=== PATIENT | female | born 1970 | race Caucasian/White ===

== ENCOUNTER 2017-04-04 12:57 | Emergency (ER) | payer SELFPAY ==
--- NOTE | 2017-04-04 14:07 | PHYS DOC ---
Past History Past Medical History: CHF, Kidney Stones, UTI Past Surgical History: Cholecystectomy Alcohol Use: Occasionally Drug Use: Marijuana Adult General Chief Complaint Chief Complaint: PAIN ON URINATION HPI HPI Patient is a 46 year old female who presents with complaint of pain with urination. The patient states that she has history of kidney stones. The patient states that she is from [place], [place] and in 2013 the patient had a "urethral stent" placed at that time due to her kidney stones. The patient states that she was supposed to have this taken out 2 weeks after it was placed , however she states that "they wanted the charge me $500 to be seen again and I did not have the money." Patient states that since then she has had the stent in place for the past 3 years. Patient states that she is currently visiting on vacation. Patient noticed increasing cloudiness to her urine and pain which is why she came in to be evaluated. Patient also notes that she has had vaginal discharge though she states she does not believe she has a sexually transmitted infection. Patient states that the discharge is whitish and thick. Patient states that she is having pain intermittently in both flanks but states that it is not severe at this time. The patient's main concern is the changes to her urine and thinks that she may have urinary tract infection. Review of Systems Review of Systems Constitutional: Denies fever or chills [] Eyes: Denies change in visual acuity, redness, or eye pain [] HENT: Denies nasal congestion or sore throat [] Respiratory: Denies cough or shortness of breath [] Cardiovascular: Denies chest pain or edema[] GI: Abdominal pain, denies nausea, vomiting, bloody stools or diarrhea [] : Dysuria, vaginal discharge[] Musculoskeletal: Denies back pain or joint pain [] Integument: Denies rash or skin lesions [] Neurologic: Denies headache, focal weakness or sensory changes [] Allergies Allergies Allergies Coded Allergies Type Severity Reaction Last Updated Verified Penicillins Allergy Intermediate 04/04/17 Yes Physical Exam Physical Exam Constitutional: Well developed, well nourished, no acute distress, non-toxic appearance. [] HENT: Normocephalic, atraumatic, bilateral external ears normal, oropharynx moist, no oral exudates, nose normal. [] Eyes: PERRLA, EOMI, conjunctiva normal, no discharge. [] Neck: Normal range of motion, no tenderness, supple, no stridor. [] Cardiovascular:Heart rate regular rhythm, no murmur [] Lungs & Thorax: Bilateral breath sounds clear to auscultation [] Abdomen: Bowel sounds normal, soft, no tenderness, no masses, no pulsatile masses. Pelvic: Normal external exam, mucosal erythema with clearish drainage, no cervical motion tenderness, no midline or bilateral adnexal tenderness on bimanual exam[] Skin: Warm, dry, no erythema, no rash. [] Back: No tenderness, no CVA tenderness. [] Extremities: No tenderness, no cyanosis, no clubbing, ROM intact, no edema. [] Neurologic: Alert and oriented X 3, normal motor function, normal sensory function, no focal deficits noted. [] Current Patient Data Vital Signs Vital Signs Date Time Temp Pulse Resp B/P (MAP) Pulse Ox O2 Delivery O2 Flow Rate FiO2 04/04/17 13:25 98.7 80 22 97 Room Air Lab Results Laboratory Tests Test 04/04/17 14:20 Urine Collection Type Void Urine Color Straw Urine Clarity Cloudy Urine pH 5.0 Urine Specific [place] <=1.005 Urine Protein Neg Urine Glucose (UA) Neg mg/dL Urine Ketones (Stick) Neg mg/dL Urine Blood Mod Urine Nitrite Neg Urine Bilirubin Neg Urine Urobilinogen Dipstick 0.2 mg/dL Urine Leukocyte Esterase Large Urine RBC Occ /HPF Urine WBC >40 /HPF Urine Squamous Epithelial Cells Few /LPF Urine Bacteria Few /HPF EKG EKG Not performed[] Radiology/Procedures Radiology/Procedures Not performed[] Course & Med Decision Making Course & Med Decision Making Pertinent Labs and Imaging studies reviewed. (See chart for details) The patient's UA shows evidence of urinary tract infection and wet prep shows evidence of bacterial vaginosis. Patient will be started on Macrobid for UTI and MetroGel for BV. Advised patient follow-up in one week with primary doctor for reevaluation and also recommended follow-up with urology for her further complaints of retained stent. The patient's vital signs are stable and patient' s exam is otherwise benign. The patient does not require further testing in the emergency department at this time. Advised return emergency department for any worsening symptoms. Patient voiced understanding and in agreement with treatment plan. Dragon Disclaimer Dragon Disclaimer This chart was dictated in whole or in part using Voice Recognition software in a busy, high-work load, and often noisy Emergency Department environment. It may contain unintended and wholly unrecognized errors or omissions. Departure Departure: Impression: Primary Impression: Bacterial vaginosis Additional Impression: Urinary tract infection Disposition: 01 HOME, SELF-CARE Condition: STABLE Patient Instructions: Bacterial Vaginosis, Urinary Tract Infection Additional Instructions: Follow-up with your primary doctor in 1 week for reevaluation. Return to emergency department for any worsening symptoms. Scripts Nitrofurantoin Monohyd/M-Cryst (MACROBID 100 MG CAPSULE) 100 Mg Capsule 1 CAP PO BID, #14 CAP Prov: RACHEL MORRISON MD 04/04/17 Metronidazole (METROGEL-VAGINAL) 70 Gm Gel.w.appl 1 APPFUL VG QHS for 7 Days, #70 GM Prov: RACHEL MORRISON MD 04/04/17 Problem Qualifiers Additional Impression: Urinary tract infection Urinary tract infection type: site unspecified Hematuria presence: without hematuria Qualified Codes: N39.0 - Urinary tract infection, site not specified RACHEL MORRISON MD Apr 04, 2017 14:07
[2017-04-04 15:19] LABS: BILIRUBIN,URINE NEG (NEG); CLARITY,URINE CLOUDY; COLOR,URINE STRAW; GLUCOSE,URINE NEG (NEG); NITRITE,URINE NEG (NEG); RBC,URINE OCC /HPF (0-2); UROBILINOGEN,URINE 0.2 mg/dL (0.2 mg/dL)
[2017-04-04 15:20] LABS: BACTERIA,URINE FEW /HPF (0-FEW); SQUAMOUS EPITHELIAL CELL,UR FEW /LPF; WBC,URINE >40 /HPF (0-4)
[2017-04-04] MEDS ORDERED: METR70GE14 VG (15:33)
[2017-04-04] MEDS ORDERED: NITR100C62 PO (15:33)
[2017-04-04 15:46] VITALS: BP 139/82
[2017-04-07 14:09] LABS: CHLAMYDIA PROBE Negative (Negative)
== END 2017-04-04 15:48 | disposition home or self-care (01) ==
LOC: ER 12:57
DX: N39.0 Urinary tract infection, site not specified (principal); N76.0 Acute vaginitis; I50.9 Heart failure, unspecified; Z87.442 Personal history of urinary calculi; Z88.0 Allergy status to penicillin; Z90.49 Acquired absence of other specified parts of digestive tract; Z88.1 Allergy status to other antibiotic agents
CPT/HCPCS: 36415; 81001; 87086; 87491; 87591; 99284; Q0111